=== PATIENT | female | born 1935 | race Caucasian/White ===

== ENCOUNTER 2019-07-26 10:40 | Emergency (ER) | payer OTHER ==
[~2019-07-26] VITALS: Ht 165.1 cm; Wt 104.3 kg
[~2019-07-26 10:40] MED LIST: ACTIGALL300 MG PO; CARTIA XT240 MG PO; CATAFLAM50 MG PO; CYMBALTA60 MG PO; HYZAAR 100/25 T1 TAB PO; MIRAPEX1 MG PO; NEURONTIN300 MG PO; PLETAL50 MG PO; PREVACID30 MG PO; ZETIA10 MG PO
== END 2019-07-26 20:14 | disposition home or self-care (01) ==
LOC: ER 10:40 → CPU-OBS 11:28 → ER 20:14
DX: B34.9 Viral infection, unspecified (principal); R06.02 Shortness of breath; I10 Essential (primary) hypertension

== ENCOUNTER 2020-09-26 09:22 | Outpatient (CLI) | payer OTHER ==
[~2020-09-26 09:22] MED LIST changes: +VOLTAREN100 GM TOP
== END 2020-09-26 09:26 | disposition home or self-care (01) ==
LOC: NUCLEAR 09:22
PROVIDERS: ATTEND Internal Medicine Cardiovascular Disease
DX: I87.2 Venous insufficiency (chronic) (peripheral) (principal)